=== PATIENT | female | born 1980 | race Caucasian/White ===

== ENCOUNTER 2016-08-04 14:14 | Emergency (ER) | payer OTHER, SELFPAY ==
[2016-08-04 14:28] VITALS: PULSE 64
--- NOTE | 2016-08-04 14:31 | ERPHSYRPT ---
- History of Present Illness Time Seen by Provider: 08/04/16 14:25 Source: patient Exam Limitations: no limitations Physician History: C/O left lumbar back pain and frontal migraine. LNMP 4 weeks ago. No trauma or repetitive activities. Method of Injury: other (none) Quality: sharp Back Pain Location: lumbar spine Severity of Pain-Max: moderate Severity of Pain-Current: moderate Modifying Factors: Improves With: other Associated Symptoms: denies symptoms Previous symptoms: same symptoms as today Allergies/Adverse Reactions: No Known Drug Allergies Allergy (Unverified 02/10/14 11:44) Home Medications: Venlafaxine HCl [Effexor] 150 mg PO 08/04/16 [History] Hx Tetanus, Diphtheria Vaccination/Date Given: Yes (UNKNOWN) Hx Influenza Vaccination/Date Given: No Hx Pneumococcal Vaccination/Date Given: No - Review of Systems Constitutional: No Symptoms Eyes: No Symptoms Ears, Nose, & Throat: No Symptoms Respiratory: No Symptoms Cardiac: No Symptoms Abdominal/Gastrointestinal: No Symptoms Musculoskeletal: Back Pain Skin: No Symptoms Neurological: Headache Psychological: No Symptoms Endocrine: No Symptoms Hematologic/Lymphatic: No Symptoms Immunological/Allergic: No Symptoms - Past Medical History Pertinent Past Medical History: Yes Neurological History: Migraines ENT History: No Pertinent History Cardiac History: No Pertinent History Respiratory History: No Pertinent History Endocrine Medical History: No Pertinent History Musculoskeletal History: No Pertinent History GI Medical History: No Pertinent History History: No Pertinent History Psycho-Social History: Depression Female Reproductive Disorders: No Pertinent History Other Medical History: back pain. IMPLANTED SPINE STIMULATOR - Past Surgical History Past Surgical History: Yes Neuro Surgical History: No Pertinent History Cardiac: No Pertinent History Respiratory: No Pertinent History Gastrointestinal: No Pertinent History Genitourinary: No Pertinent History Musculoskeletal: Orthopedic Surgery Female Surgical History: Section Other Surgical History: BACK SURGERY IN 2004 STATES THAT SINCE THEN SHE HAS TO MANUALLY HAVE BM. CARPAL TUNEL IN LEFT ARM. SPINE STIMULATOR - Social History Smoking Status: Never smoker Exposure to second hand smoke: No Drug Use: none Patient Lives Alone: No - Female History Hx Now: No - Physical Exam General Appearance: moderate distress Eye Exam: eyes nml inspection Ears, Nose, Throat Exam: normal ENT inspection, TMs normal, pharynx normal Neck Exam: normal inspection, non-tender, supple, full range of motion Respiratory Exam: normal breath sounds, lungs clear Cardiovascular Exam: regular rate/rhythm, normal heart sounds, normal peripheral pulses Gastrointestinal Exam: soft, normal bowel sounds Back Exam: normal inspection, CVA tenderness, No vertebral tenderness, No decreased range of motion Extremity Exam: normal inspection, normal range of motion, pelvis stable Peripheral Pulses: dorsalis-pedis (R): 3+, dorsalis-pedis (L): 3+ Neurologic Exam: alert, oriented x 3, cooperative Skin Exam: normal color, warm, dry SpO2 Interpretation: normal - Course Nursing assessment & vital signs reviewed: Yes - Radiology Exams L-Spine X-ray Interpretation: Teleradiologist Report (Nonacute lumbar spine with chronic features. % mm left ureteral stone.) Ordered Tests: Active Orders 24 hr Category Date Time Status LUMBAR COMPLETE (MIN 4 VIEWS) Stat Exams 08/04/16 14:31 Completed Medication Summary Discontinued Medications Generic Name Dose Route Start Last Admin Trade Name Freq PRN Reason Stop Dose Admin Diphenhydramine HCl 25 mg 08/04/16 14:33 08/04/16 15:05 Benadryl 50 Mg/Ml IV 08/04/16 14:34 25 mg STAT ONE Administration Diphenhydramine HCl Confirm 08/04/16 15:03 Benadryl 50 Mg/Ml Administered 08/04/16 15:04 Dose 50 mg .ROUTE .STK-MED ONE Ketorolac Tromethamine 30 mg 08/04/16 14:33 08/04/16 15:06 Toradol 30 Mg Injection IV 08/04/16 14:34 30 mg STAT ONE Administration Ketorolac Tromethamine Confirm 08/04/16 15:03 Toradol 30 Mg Injection Administered 08/04/16 15:04 Dose 30 mg .ROUTE .STK-MED ONE Metoclopramide HCl 10 mg 08/04/16 14:33 08/04/16 15:06 Reglan 10 Mg/2 Ml IV 08/04/16 14:34 10 mg STAT ONE Administration Metoclopramide HCl Confirm 08/04/16 15:03 Reglan 10 Mg/2 Ml Administered 08/04/16 15:04 Dose 10 mg .ROUTE .STK-MED ONE Ondansetron HCl 4 mg 08/04/16 14:33 08/04/16 15:07 Zofran 4 Mg/2 Ml Vial IV 08/04/16 14:34 4 mg STAT ONE Administration Ondansetron HCl Confirm 08/04/16 15:03 Zofran 4 Mg/2 Ml Vial Administered 08/04/16 15:04 Dose 4 mg .ROUTE .STK-MED ONE - Progress Progress: improved Counseled pt/family regarding: need for follow-up (with urologist), rad results - Departure Time of Disposition: 15:30 Departure Disposition: Home Clinical Impression: Ureterolithiasis Migraine Qualifiers: Migraine type: without aura Status migrainosus presence: without status migrainosus Intractability: not intractable Qualified Code(s): G43.009 - Migraine without aura, not intractable, without status migrainosus Condition: Stable Critical Care Time: No Prescriptions: Hydrocodone Bit/Acetaminophen [[place] 5-325 Tablet] 1 each PO Q4-6HPRN PRN #20 tablet PRN Reason: Pain Naproxen 1 tab PO BID #20 tablet
[2016-08-04] MEDS ORDERED: BENADRYL 50 MG/ML IV ONE (14:33)
[2016-08-04] MEDS ORDERED: Reglan 10 MG/2 ML IV ONE (14:33)
[2016-08-04] MEDS ORDERED: TORAdol 30 mg Injection IV ONE (14:33)
[2016-08-04] MEDS ORDERED: Zofran 4 MG/2 ML VIAL IV ONE (14:33)
--- NOTE | 2016-08-04 14:55 | XRAY ---
Indication: Low back pain. Comparison: None 5 views of the lumbar spine demonstrates 5 lumbar vertebral segments, minimal bilateral L4-S1 degenerative facet arthropathy, previous L4-L5 fusion surgery with intervertebral spacer, left-sided spinal stimulator device with leads terminating in the lower thoracic spine, and previous cholecystectomy. No acute fracture, subluxation, or pars interarticularis defect. 5 mm calcification just left lateral to the L2-L3 interspace possibly ureteral. Impression: Nonacute lumbar spine with chronic features. Query 5 mm left ureteral stone.
[2016-08-04] MEDS ORDERED: TORAdol 30 mg Injection ONE (15:03)
[2016-08-04] MEDS ORDERED: BENADRYL 50 MG/ML ONE (15:03)
[2016-08-04] MEDS ORDERED: Zofran 4 MG/2 ML VIAL ONE (15:03)
[2016-08-04] MEDS ORDERED: Reglan 10 MG/2 ML ONE (15:03)
[2016-08-04 16:29] LABS: ADD URINE CULTURE? YES (NO); Bacteria RARE /HPF (NEGATIVE); COMPLETE URINE MICROSCOPIC? YES; Collection Type CCMS; Epithelial Cells FEW /HPF (FEW); Ph 6.5 (5-6); WBC 0-2 /HPF (0-5)
[2016-08-04 16:59] VITALS: BP 131/68; O2SAT 99
== END 2016-08-04 16:59 | disposition home or self-care (01) ==
LOC: ED 14:14
DX: N20.1 Calculus of ureter (principal); G43.009 Migraine without aura, not intractable, without status migrainosus; M54.5 Low back pain
CPT/HCPCS: 36000; 72110; 81000; 87086; 96374; 96375; 99285; J1200; J1885; J2405

== ENCOUNTER 2016-11-06 12:04 | Emergency (ER) | payer OTHER, SELFPAY ==
[2016-11-06] MEDS ORDERED: PROVENTIL 2.5 MG/3 ML NEB IH ONE ×2 (12:39→12:42)
[2016-11-06] MEDS ORDERED: MOTRIN 600 MG PO ONE (12:40)
--- NOTE | 2016-11-06 12:45 | ERPHSYRPT ---
- History of Present Illness Time Seen by Provider: 11/06/16 12:07 Source: patient Patient Subjective Stated Complaint: pt states she has had a productive cough for the past 2 days. states her head hurts. Denies any fever. Triage Nursing Assessment: pt pink, warm,dry. ambulated into ER without difficulty. dry cough noted. lung sounds clear and equal. pt afebrile. 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 She has few day hx of cough, headache, sinus drng, chest burning, aches. No fever. No hx of asthma or lung or heart disease. LMP 3 weeks ago. Not short of breath. She is supposed to go to school tomorrow. Allergies/Adverse Reactions: No Known Drug Allergies Allergy (Unverified 11/06/16 12:11) Home Medications: Venlafaxine HCl [Effexor] 150 mg PO DAILY 08/04/16 [History] Hx Tetanus, Diphtheria Vaccination/Date Given: Yes (up to date) Hx Influenza Vaccination/Date Given: Yes Hx Pneumococcal Vaccination/Date Given: No Immunizations Up to Date: Yes - Review of Systems Constitutional: Malaise, No Fever, No Chills Eyes: No Symptoms Ears, Nose, & Throat: Nose Congestion, Sinus Drainage Respiratory: Cough Abdominal/Gastrointestinal: No Vomiting, No Diarrhea Skin: No Rash Neurological: Headache, No Focal Weakness, No Parasthesia All Other Systems: Reviewed and Negative - Past Medical History Pertinent Past Medical History: Yes Neurological History: Migraines ENT History: No Pertinent History Cardiac History: No Pertinent History Respiratory History: No Pertinent History Endocrine Medical History: No Pertinent History Musculoskeletal History: No Pertinent History GI Medical History: No Pertinent History History: No Pertinent History Psycho-Social History: Depression Female Reproductive Disorders: No Pertinent History Other Medical History: chronic back pain - Past Surgical History Past Surgical History: Yes Neuro Surgical History: No Pertinent History Cardiac: No Pertinent History Respiratory: No Pertinent History Gastrointestinal: Cholecystectomy Genitourinary: No Pertinent History Musculoskeletal: Orthopedic Surgery Female Surgical History: Section Other Surgical History: back surgery. carpa tunnel - Social History Smoking Status: Never smoker Exposure to second hand smoke: No Drug Use: none Patient Lives Alone: No - Female History Hx Last Menstrual Period: october 14 2016 Hx Now: No - Nursing Vital Signs Nursing Vital Signs: Initial Vital Signs Temperature 98.0 F Temperature Source Oral Pulse Rate 87 Respiratory Rate 20 Blood Pressure [Right Arm] 157/94 Pain Intensity 8 - Physical Exam General Appearance: alert Eye Exam: PERRL/EOMI Ears, Nose, Throat Exam: normal ENT inspection, moist mucous membranes Neck Exam: normal inspection, non-tender, supple, No meningismus Respiratory Exam: normal breath sounds, lungs clear Cardiovascular Exam: regular rate/rhythm Gastrointestinal/Abdomen Exam: soft, No tenderness, No distention Extremity Exam: normal inspection, No calf tenderness, No pedal edema Neurologic Exam: alert, oriented x 3 Skin Exam: warm, dry, No rash SpO2 Interpretation: normal SpO2: 97 Oxygen Delivery: Room Air - Course Nursing assessment & vital signs reviewed: Yes Ordered Tests: Active Orders 24 hr Category Date Time Status Respiratory Nebulizer STAT RT 11/06/16 12:40 Active Medication Summary Discontinued Medications Generic Name Dose Route Start Last Admin Trade Name Freq PRN Reason Stop Dose Admin Albuterol Sulfate 2.5 mg 11/06/16 12:39 Proventil 2.5 Mg/3 Ml Neb IH 11/06/16 12:40 STAT ONE Ibuprofen 600 mg 11/06/16 12:40 Motrin 600 Mg PO 11/06/16 12:41 STAT ONE - Progress Progress Note: 11/06/16 12:42 This appears to be sino-bronchitis. Offered cxr or EKG. She wants to try bronchitis meds. Needs school slip. Alb and motrin given here. Rx doxy and motrin and alb MDI. Counseled pt/family regarding: diagnosis, need for follow-up - Departure Time of Disposition: 12:43 Departure Disposition: Home Clinical Impression: acute sino-bronchitis Condition: Stable Critical Care Time: No Referrals: DARRELL CARLISLE [Primary Care Provider] - Instructions: Cough -- Adult, Bronchitis Additional Instructions: Rx ibuprofen for discomfort. Rx albuteorl MDI. Rx doxycycline. Plenty of oral fluids. Off school tomorrow. OTC cough syrup as directed - robitussin DM Prescriptions: Ibuprofen 600 mg PO Q6H PRN PRN #24 tablet PRN Reason: Pain Albuterol Sulfate [Albuterol Sulfate Hfa] 2 puff IH Q4-6HPRN PRN #1 [id number] PRN Reason: cough or wheeze Doxycycline Hyclate [Vibramycin] 1 cap PO BID #20 capsule
[2016-11-06] MEDS ORDERED: MOTRIN 600 MG ONE (12:47)
[2016-11-06 13:05] VITALS: BP 112/67; PULSE 92; O2SAT 97
== END 2016-11-06 13:05 | disposition home or self-care (01) ==
LOC: ED 12:04
DX: J20.9 Acute bronchitis, unspecified (principal); J01.90 Acute sinusitis, unspecified
CPT/HCPCS: 94640; 99283; A9270-GY

== ENCOUNTER 2018-05-31 08:42 | Emergency (ER) | payer OTHER ==
[2018-05-31 09:18] VITALS: O2SAT 99
[2018-05-31] MEDS ORDERED: Sodium Chloride 0.9% 1000 ML 1,000 ML IV STA ×2 (09:22→11:10)
--- NOTE | 2018-05-31 09:22 | ERPHSYRPT ---
- History of Present Illness Time Seen by Provider: 05/31/18 09:05 Source: patient Exam Limitations: no limitations Physician History: 38 y/o white female presents with 4 day h/o cough, sore throat, cp with coughing , feels drained. vomited x1. no diarrhea. no earaches. pt on augmentin and tessalon perles. not any better. Timing/Duration: day(s) (4) Cough Quality/Degree: moderate, dry cough Possible Cause: no prior episodes Modifying Factors: Improves With: coughing Associated Symptoms: chest pain/soreness (with cough only), cough, No earache, No headache Allergies/Adverse Reactions: No Known Drug Allergies Allergy (Verified 05/31/18 09:00) Home Medications: Buspirone HCl [Buspar] 30 mg PO BID 05/31/18 [History] Clonazepam 0.5 mg [Klonopin 0.5 MG] 0.5 mg PO DAILY 05/31/18 [History] Norethindrone-E.estradiol-Iron [Microgestin Fe 1-20 Tablet] 1 each PO DAILY [History] Paroxetine HCl [Paxil] 30 mg PO DAILY 05/31/18 [History] Hx Tetanus, Diphtheria Vaccination/Date Given: Yes (up to date) Hx Influenza Vaccination/Date Given: Yes Hx Pneumococcal Vaccination/Date Given: No - Review of Systems Constitutional: No Symptoms Eyes: No Symptoms Ears, Nose, & Throat: Throat Pain Respiratory: Cough, No Dyspnea, No Stridor, No Wheezing Cardiac: No Symptoms Abdominal/Gastrointestinal: Nausea, Vomiting, No Abdominal Pain, No Diarrhea Genitourinary Symptoms: No Symptoms, No Dysuria, No Frequency, No Hematuria Musculoskeletal: No Symptoms Skin: No Symptoms Neurological: No Symptoms Psychological: No Symptoms Endocrine: No Symptoms Hematologic/Lymphatic: No Symptoms Immunological/Allergic: No Symptoms All Other Systems: Reviewed and Negative - Past Medical History Pertinent Past Medical History: Yes Neurological History: Migraines ENT History: No Pertinent History Cardiac History: No Pertinent History Respiratory History: No Pertinent History Endocrine Medical History: No Pertinent History Musculoskeletal History: No Pertinent History GI Medical History: No Pertinent History History: No Pertinent History Psycho-Social History: Depression Female Reproductive Disorders: No Pertinent History Other Medical History: chronic back pain - Past Surgical History Past Surgical History: Yes Neuro Surgical History: No Pertinent History Cardiac: No Pertinent History Respiratory: No Pertinent History Gastrointestinal: Cholecystectomy Genitourinary: No Pertinent History Musculoskeletal: Orthopedic Surgery Female Surgical History: Section Other Surgical History: back surgery. carpa tunnel - Social History Smoking Status: Never smoker Exposure to second hand smoke: No Drug Use: none Patient Lives Alone: No - Nursing Vital Signs Nursing Vital Signs: Initial Vital Signs Temperature 97.7 F 05/31/18 08:48 Pulse Rate 90 05/31/18 08:48 Respiratory Rate 16 05/31/18 08:48 Blood Pressure 130/104 05/31/18 08:48 O2 Sat by Pulse Oximetry 99 05/31/18 08:48 Pain Scale Pain Intensity 0 - Physical Exam General Appearance: mild distress, alert, anxiety Eye Exam: PERRL/EOMI, eyes nml inspection Ears, Nose, Throat Exam: normal ENT inspection, TMs normal, pharynx normal, moist mucous membranes Neck Exam: normal inspection, non-tender, supple, full range of motion Respiratory Exam: normal breath sounds, lungs clear, airway intact, No chest tenderness, No respiratory distress, No accessory muscle use, No rhonchi, No wheezing, No stridor Cardiovascular Exam: regular rate/rhythm, normal heart sounds, normal peripheral pulses Gastrointestinal/Abdomen Exam: soft, normal bowel sounds, No tenderness, No guarding, No rebound Pelvic Exam: not done Rectal Exam: not done Back Exam: normal inspection, normal range of motion, No CVA tenderness, No vertebral tenderness Extremity Exam: normal inspection, normal range of motion, pelvis stable Neurologic Exam: alert, oriented x 3, cooperative, 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 Skin Exam: normal color, warm, dry Lymphatic Exam: No adenopathy SpO2 Interpretation: normal O2 Delivery: Room Air - Course Nursing assessment & vital signs reviewed: Yes Ordered Tests: Active Orders 24 hr Category Date Time Status IV Insertion STAT Care 05/31/18 09:22 Active CHEST 1 VIEW (PORTABLE) Stat Exams 05/31/18 09:23 Completed CBC W DIFF Stat Lab 05/31/18 09:26 Completed CMP Stat Lab 05/31/18 09:26 Completed T[place] Screen Stat Lab 05/31/18 09:26 Completed Medication Summary Discontinued Medications Generic Name Dose Route Start Last Admin Trade Name Freq PRN Reason Stop Dose Admin Hydrocodone Bitart/Acetaminophen 10 ml 05/31/18 11:27 05/31/18 11:56 Hydrocodone-Acetamin 2.5-108/5 Ml Solution PO 05/31/18 11:28 10 ml STAT STA Administration Hydrocodone Bitart/Acetaminophen Confirm 05/31/18 11:55 Hydrocodone-Acetamin 2.5-108/5 Ml Solution Administered 05/31/18 11:56 Dose 10 ml .ROUTE .STK-MED ONE Sodium Chloride 1,000 mls @ 999 mls/hr 05/31/18 09:22 05/31/18 09:30 Sodium Chloride 0.9% 1000 Ml IV 05/31/18 10:22 999 mls/hr .Q1H1M STA Administration Sodium Chloride Confirm 05/31/18 09:27 Sodium Chloride 0.9% 1000 Ml Administered 05/31/18 09:28 Dose 1,000 mls @ ud .ROUTE .STK-MED ONE Sodium Chloride 1,000 mls @ 999 mls/hr 05/31/18 11:10 05/31/18 11:15 Sodium Chloride 0.9% 1000 Ml IV 05/31/18 12:10 999 mls/hr .Q1H1M STA Administration Sodium Chloride Confirm 05/31/18 11:14 Sodium Chloride 0.9% 1000 Ml Administered 05/31/18 11:15 Dose 1,000 mls @ ud .ROUTE .STK-MED ONE Ondansetron HCl 4 mg 05/31/18 09:24 05/31/18 09:30 Zofran 4 Mg/2 Ml Vial IV 05/31/18 09:25 4 mg STAT ONE Administration Ondansetron HCl Confirm 05/31/18 09:27 Zofran 4 Mg/2 Ml Vial Administered 05/31/18 09:28 Dose 4 mg .ROUTE .STK-MED ONE Promethazine HCl 12.5 mg 05/31/18 10:16 05/31/18 10:28 Phenergan 25 Mg Inj IM 05/31/18 10:17 12.5 mg STAT ONE Administration Promethazine HCl Confirm 05/31/18 10:25 Phenergan 25 Mg Inj Administered 05/31/18 10:26 Dose 25 mg .ROUTE .STK-MED ONE Lab/Rad Data: Laboratory Result Diagrams 05/31/18 09:26 01/24/19 09:26 Laboratory Results 05/31/18 05/31/18 05/31/18 Range/Units 09:43 09:26 09:26 WBC (4.0-10.5) K/mm3 RBC (4.1-5.4) M/mm3 Hgb (12.0-16.0) gm/dl Hct (35-47) % MCV (78-100) fl MCH (26-32) pg MCHC (32-36) g/dl RDW (11.5-14.0) % Plt Count (150-450) K/mm3 MPV (6-9.5) fl Gran % (36.0-66.0) % Eos # (Auto) (0-0.5) Absolute Lymphs (auto) (1.0-4.6) Absolute Monos (auto) (0.0-1.3) Lymphocytes % (24.0-44.0) % Monocytes % (0.0-12.0) % Eosinophils % (0.00-5.0) % Basophils % (0.0-0.4) % Absolute Granulocytes (1.4-6.9) Basophils # (0-0.4) Sodium 140 (137-145) mmol/L Potassium 3.9 (3.5-5.1) mmol/L Chloride 106 (98-107) mmol/L Carbon Dioxide 24 (22-30) mmol/L Anion Gap 14.1 (5-15) MEQ/L BUN 11 (7-17) mg/dL Creatinine 0.73 (0.52-1.04) mg/dL Estimated GFR > 60.0 ML/MIN Glucose 97 (74-106) mg/dL Calcium 9.1 (8.4-10.2) mg/dL Total Bilirubin 0.50 (0.2-1.3) mg/dL AST 31 (14-36) U/L ALT 16 (0-35) U/L Alkaline Phosphatase 73 (38-126) U/L Serum Total Protein 8.2 (6.3-8.2) g/dL Albumin 4.6 (3.5-5.0) g/dL Monoscreen NEGATIVE (Negative) Influenza Type A Ag NEGATIVE (NEGATIVE) Influenza Type B Ag NEGATIVE (NEGATIVE) RSV (PCR) NEGATIVE (Negative) Group A Strep Antibody NEGATIVE (NEGATIVE) 05/31/18 Range/Units 09:26 WBC 6.9 (4.0-10.5) K/mm3 RBC 4.35 (4.1-5.4) M/mm3 Hgb 12.6 (12.0-16.0) gm/dl Hct 38.7 (35-47) % MCV 89.0 (78-100) fl MCH 29.0 (26-32) pg MCHC 32.6 (32-36) g/dl RDW 15.2 H (11.5-14.0) % Plt Count 260 (150-450) K/mm3 MPV 10.7 H (6-9.5) fl Gran % 53.9 (36.0-66.0) % Eos # (Auto) 0.16 (0-0.5) Absolute Lymphs (auto) 2.28 (1.0-4.6) Absolute Monos (auto) 0.70 (0.0-1.3) Lymphocytes % 33.2 (24.0-44.0) % Monocytes % 10.2 (0.0-12.0) % Eosinophils % 2.3 (0.00-5.0) % Basophils % 0.4 (0.0-0.4) % Absolute Granulocytes 3.70 (1.4-6.9) Basophils # 0.03 (0-0.4) Sodium (137-145) mmol/L Potassium (3.5-5.1) mmol/L Chloride (98-107) mmol/L Carbon Dioxide (22-30) mmol/L Anion Gap (5-15) MEQ/L BUN (7-17) mg/dL Creatinine (0.52-1.04) mg/dL Estimated GFR ML/MIN Glucose (74-106) mg/dL Calcium (8.4-10.2) mg/dL Total Bilirubin (0.2-1.3) mg/dL AST (14-36) U/L ALT (0-35) U/L Alkaline Phosphatase (38-126) U/L Serum Total Protein (6.3-8.2) g/dL Albumin (3.5-5.0) g/dL Monoscreen (Negative) Influenza Type A Ag (NEGATIVE) Influenza Type B Ag (NEGATIVE) RSV (PCR) (Negative) Group A Strep Antibody (NEGATIVE) - Progress Progress: improved Air Movement: good Blood Culture(s) Obtained: No Antibiotics given: No Counseled pt/family regarding: lab results, diagnosis, need for follow-up, rad results - Departure Time of Disposition: 11:35 Departure Disposition: Home Clinical Impression: Viral syndrome Condition: Stable Critical Care Time: No Referrals: DARRELL CARLISLE [Primary Care Provider] - Instructions: Viral Upper Respiratory Infection, Adult (DC) Additional Instructions: drink plenty of fluids. follow up with primary doctor for further management. stop your antibiotics. Prescriptions: Hydrocodone Bit/Acetaminophen [Hydrocodone-Acetaminophen Soln] 10 ml PO Q6H # 120 ml
[2018-05-31] MEDS ORDERED: Zofran 4 MG/2 ML VIAL IV ONE (09:24)
[2018-05-31] MEDS ORDERED: Zofran 4 MG/2 ML VIAL ONE (09:27)
[2018-05-31] MEDS ORDERED: Sodium Chloride 0.9% 1000 ML 1,000 ML ONE ×2 (09:27→11:14)
[2018-05-31 09:32] LABS: BASOPHIL % 0.4 % (0.0-0.4); Basophil (Absolute #) 0.03 (0-0.4); Eosinophil % 2.3 % (0.00-5.0); Eosinophil (Absolute #) 0.16 (0-0.5); Granulocytes % 53.9 % (36.0-66.0); Hematocrit 38.7 % (35-47); Hemoglobin 12.6 gm/dl (12.0-16.0); Lymphocyte (Absolute #) 2.28 (1.0-4.6); Lymphocytes % 33.2 % (24.0-44.0); Mean Corpuscular Hgb Concent. 32.6 g/dl (32-36); Mean Platelet Volume 10.7 fl (6-9.5); Monocytes % 10.2 % (0.0-12.0); Platelet Count 260 K/mm3 (150-450); Red Blood Count 4.35 M/mm3 (4.1-5.4); Red Cell Distribution Width 15.2 % (11.5-14.0); White Blood Count 6.9 K/mm3 (4.0-10.5)
[2018-05-31 09:41] LABS: ALBUMIN 4.6 g/dL (3.5-5.0); ALKALINE PHOSPHATASE 73 U/L (38-126); ANION GAP 14.1 MEQ/L (5-15); BLOOD UREA NITROGEN 11 mg/dL (7-17); CHLORIDE 106 mmol/L (98-107); Calcium 9.1 mg/dL (8.4-10.2); Carbon Dioxide 24 mmol/L (22-30); Creatinine 1 0.73 mg/dL (0.52-1.04); Glucose 97 mg/dL (74-106); Potassium 3.9 mmol/L (3.5-5.1); SGOT/AST 31 U/L (14-36); SGPT/ALT 16 U/L (0-35); SODIUM 140 mmol/L (137-145); Total Protein 8.2 g/dL (6.3-8.2)
--- NOTE | 2018-05-31 09:58 | XRAY ---
Indication: Fever, cough, and sore throat 4 days. Comparison: February 27, 2009. Portable chest again demonstrates normal heart, lungs, and bony thorax with new spinal stimulator leads terminating T6 level.
[2018-05-31 10:08] LABS: Group A Strep NEGATIVE (NEGATIVE)
[2018-05-31] MEDS ORDERED: Phenergan 25 MG INJ IM ONE (10:16)
[2018-05-31 10:17] LABS: INFLUENZA A NEGATIVE (NEGATIVE); INFLUENZA B NEGATIVE (NEGATIVE); RESPIRATORY SYNCTIAL VIRUS NEGATIVE (Negative)
[2018-05-31] MEDS ORDERED: Phenergan 25 MG INJ ONE (10:25)
[2018-05-31] MEDS ORDERED: HYDROCODONE-ACETAMIN 2.5-108/5 ML SOLUTION PO STA (11:27)
[2018-05-31 11:30] VITALS: PULSE 76
[2018-05-31] MEDS ORDERED: HYDROCODONE-ACETAMIN 2.5-108/5 ML SOLUTION ONE (11:55)
[2018-05-31 12:29] VITALS: BP 119/77
== END 2018-05-31 12:31 | disposition home or self-care (01) ==
LOC: ED 08:42
DX: B34.9 Viral infection, unspecified (principal)
CPT/HCPCS: 36000; 36415; 71045; 80053; 85025; 86308; 87631; 87651; 96360; 96361; 96372; 96374; 99284; J2405; J2550; A9270-GY

== ENCOUNTER 2023-03-06 11:51 | Day surgery (SDC) | payer BC, OTHER ==
--- NOTE | 2023-03-06 09:56 | HP ---
DATE OF SURGERY: 03/06/2023 HISTORY OF PRESENT ILLNESS: The patient is a 43-year-old with history of some bloating, sometimes things still get stuck in her upper esophagus. PAST MEDICAL HISTORY: Depression, anxiety, migraines. PAST SURGICAL HISTORY: Tonsillectomy. Cholecystectomy. section. Back surgery and fusion in the past. Spinal cord stimulator in the past. Carpal tunnel. MEDICATIONS: Protonix, buspirone, Lexapro. ALLERGIES: NKDA. FAMILY HISTORY: Negative. SOCIAL HISTORY: Denies smoking. Occasional alcohol use. REVIEW OF SYSTEMS: Fourteen systems reviewed. No chest pain or palpitations. Other systems negative or noncontributory as above and per preadmission questionnaire. PHYSICAL EXAMINATION: Height 5'5". BMI 38. GENERAL: No acute distress. HEENT: Sclerae nonicteric. EOMI. Oral mucous membranes moist. NECK: No JVD. CHEST: Equal excursion, nonlabored breathing. CVS: Regular rate and rhythm. ABDOMEN: Soft. No peritoneal signs. EXTREMITIES: No cyanosis or edema. NEURO: Alert, oriented, moving extremities symmetrically. PSYCH: Appropriate mood and affect. SKIN: Dry. IMPRESSION: Dysphagia and bloating. She is in need of upper endoscopy possible biopsy possible dilatation. Shown the risk sheet, explained the procedure in detail including but not limited to bleeding or infection, risk of bowel injury or perforation, risk of missed or nondiagnosis or incomplete exam possibility if dilatation is performed improves swallowing she may need it done in the future. Possibility of spasm, narrowing or may be a neurologic or functional problem that dilatation might not help dysphagia and may need further referral, work up and/or other treatments or studies. Possibly if she has persistent narrowing might require repeat dilatation with different type of dilator. She understands and will proceed with EGD possible biopsy possible dilatation as an outpatient. Continue medication for depression, headaches and reflux.
[2023-03-06 12:12] LABS: HCG URINE TEST NEGATIVE (NEGATIVE)
[2023-03-06] MEDS ORDERED: Lactated Ringers 1,000 ML IV SCH (12:30)
[2023-03-06] MEDS ORDERED: Lactated Ringers 1,000 ML IV ONE (12:33)
[2023-03-06] MEDS ORDERED: DIPRIVAN 200 MG/20 ML IV ONE ×2 (14:29→14:43)
[2023-03-06] MEDS ORDERED: Xylocaine-Mpf 2% 5 Ml Vial ONE (14:29)
[2023-03-06] MEDS ORDERED: Versed 2 MG/2 ML Injection ONE (14:29)
[2023-03-06 15:42] VITALS: BP 141/99; PULSE 79; RESP 16; TEMP 97.6; O2SAT 99
--- NOTE | 2023-03-07 11:30 | OP ---
SURGERY DATE/TIME: 03/06/2023 1433 PREOPERATIVE DIAGNOSIS: History of dysphagia, history of bloating. POSTOPERATIVE DIAGNOSES: 1) Mild erosive gastritis. 2) Very tiny short segment early distal esophagitis versus normal variation of gastroesophageal junction. 3) Proximal esophageal narrowing and spasm without any evidence of any mass or lesion. 4) ASA Class II. PROCEDURES: 1) EGD with cold biopsy of small bowel to evaluate for celiac sprue. 2) Cold biopsy of antrum to evaluate for Helicobacter pylori. 3) Cold biopsy distal esophagus. 4) Proximal esophageal balloon dilatation (size 20 balloon dilator). SURGEON: Dr. Jose Raul Barfield. ANTIQUE JEWELRY REPAIRER: Milena Cunningham, Medical Student 3. ANESTHESIA: MAC. ESTIMATED BLOOD LOSS: Minimal. INDICATIONS: As noted above. Risks and benefits explained in detail and not limited to and consent obtained. DESCRIPTION OF PROCEDURE AND FINDINGS: The patient is taken to the endoscopy room. MAC anesthesia introduced. After official time out and no disagreement with planned procedure, video gastroscope passed down the oropharynx. She did have some possible esophageal narrowing and spasm. There was no evidence of any mass or lesion to biopsy but given her symptoms it was felt that warranted dilatation. The scope is passed back down in the stomach through to the junction of third and fourth portion of the duodenum. The duodenum grossly unremarkable but given her history of bloating, cold biopsy is taken to evaluate for celiac sprue. Good hemostasis noted. Scope pulled back in the stomach. She did have some mild erosive gastritis particularly in the antrum. Cold biopsy is taken of the gastritis to evaluate for Helicobacter pylori. Good hemostasis noted. There was nothing deep enough to call an ulcer but she had some erosive gastritis. On retroflex, the gastroesophageal junction snug against the scope. The scope is straightened, pulled back and gastroesophageal junction about 40 cm. The Z-line was fairly crisp. There was just one little, tiny area of early inflammation versus normal variation. Cold biopsy is taken. There is one little tiny island of some salmon-pink mucosa 1 to 2 mm above the Z-line. Cold biopsy is taken of these areas. Good hemostasis noted. Otherwise, the remainder of the esophagus no signs of any obvious masses or lesions up to the proximal esophageal narrowed area. Again, there was no mass or lesion to biopsy. It looked like there was benign intrinsic narrowing and spasm. It was felt as she is having symptoms here, it was felt warranted trial dilatation. The scope passed back down the stomach. 20 balloon catheter carefully inserted, pulled back up to the proximal esophageal narrowing and spasm then gradually inflated first stage 30 seconds, second stage 30 seconds, final stage size 20 balloon dilator left inflated for 2 minutes. The balloon catheter was then decompressed and withdrawn. The scope much more easily passed through this area back down in the stomach and carefully withdrawn. There was no evidence of any full thickness issues or injury secondary to dilatation. It should be noted that the patient was having hiccups when we had the balloon dilator up. There did not appear to be evidence of any full thickness issues or injury secondary to dilatation. The scope is withdrawn. The patient tolerated the procedure well. Findings discussed with the family out in the waiting area.
== END 2023-03-06 15:15 | disposition home or self-care (01) ==
LOC: SDC 11:51
PROVIDERS: ATTEND Surgery
DX: K29.70 Gastritis, unspecified, without bleeding (principal); R13.10 Dysphagia, unspecified; R14.0 Abdominal distension (gaseous); K20.90 Esophagitis, unspecified without bleeding; K22.2 Esophageal obstruction
CPT/HCPCS: 81025; C1726; J2250; J2704